=== PATIENT | male | born 1970 | race Caucasian/White ===

== ENCOUNTER 2023-08-24 15:31 | Emergency (ER) | payer BC ==
[~2023-08-24] VITALS: Ht 182.9 cm; Wt 130.4 kg
[2023-08-24 15:52] VITALS: O2SAT 97
[2023-08-24 15:57] VITALS: BP 171/88; PULSE 80; RESP 20; TEMP 97.7; TEMP 98.7; O2SAT 97
[2023-08-24] MEDS ORDERED: IBUPROFEN 600 MG TAB PO ONE (18:05)
[2023-08-24] MEDS ORDERED: ACETAMINOPHEN EXTRA STRENGTH 500 MG TAB PO ONE (18:05)
[2023-08-24] MEDS ORDERED: ACET-8905 PO (18:14)
[2023-08-24] MEDS ORDERED: IBUP-2213 PO (18:14)
== END 2023-08-24 19:07 | disposition home or self-care (01) ==
LOC: MED 15:31
DX: S42.391A Other fracture of shaft of right humerus, initial encounter for closed fracture (principal); S80.01XA Contusion of right knee, initial encounter; W18.30XA Fall on same level, unspecified, initial encounter; Y93.89 Activity, other specified; Y92.89 Other specified places as the place of occurrence of the external cause; Y99.8 Other external cause status
CPT/HCPCS: 73030; 73562; 99284